=== PATIENT | female | born 1955 | race Hispanic/Latino ===

== ENCOUNTER 2020-07-18 14:59 | Emergency (ER) | payer OTHER, SELFPAY ==
[2020-07-18 16:21] LABS: Bilirubin Negative (Negative); Blood, Urine Negative (Negative); Clarity Clear (Clear); Glucose, Urine (Dipstick) Negative (Negative); Ketone, Urine Negative (Negative); Leukocyte Negative (Negative); Nitrite Negative (Negative); Protein, Urine (Dipstick) Negative (Neg-Trace); Specific Gravity, Urine 1.025 (1.005-1.030); Urobilinogen 0.2 mg/dL (Less than 2)
[2020-07-18] MEDS ORDERED: Ketorolac Tromethamine 30 MG/ML VIAL ONE (16:33)
[2020-07-18 16:40] LABS: ALT (SGPT) 39 U/L (8-55); AST (SGOT) 73 U/L (5-34); Albumin 3.8 g/dL (3.4-4.8); Alkaline Phosphatase 72 U/L (40-110); Anion Gap 14 mmol/L (10-20); BUN (Urea Nitrogen) 9 mg/dL (9.8-20.1); Bilirubin, Total 0.2 mg/dL (0.2-1.2); Calc. Creatinine Clearance 0 mL/min (70-130); Calcium 8.8 mg/dL (7.8-10.44); Carbon Dioxide 23 mmol/L (23-31); Chloride 104 mmol/L (98-107); Estimated GFR-MDRD 44; Globulin 4.3 g/dL (2.4-3.5); Glucose 111 mg/dL (80-115); Lipase 17 U/L (8-78); Potassium 3.8 mmol/L (3.5-5.1); Protein, Total 8.1 g/dL (6.0-8.3); Sodium 137 mmol/L (136-145)
--- NOTE | 2020-07-18 16:56 | CT ---
CT ABDOMEN AND PELVIS WITHOUT CONTRAST: 07/18/[address] of the abdomen and pelvis was done without oral or IV contrast for right flank, mainly lowe r quadrant, pain. There are no focal infiltrates in the lungs. Some of the interstitial markings show minimal prominenc e which is probably chronic. Coronary artery calcifications are present. There are no effusions. The liver is a little generous in size but no space occupying disease was seen in it, the spleen, or the pancreas. The left adrenal gland is a little more nodular than the right but no discrete masses w ere appreciated. The kidneys showed no sign of mass or hydronephrosis within the limitations of a non contrast study. No stones were seen in the kidneys or the ureters. Neither ureter was dilated. There is no distention of bowel to suggest obstruction. There is no thickening of bowel wall. Sigmoid diverticulosis without diverticulitis is seen. Attention is drawn to the patient's appendix which is rather long and ascends up the right flank. In its mid portion, it is 8 mm wide which is borderline in width. There is no stranding around it and ga s does appear to be present in many sections of it. The finding is indeterminate for appendicitis. CT of the pelvis showed no pelvic masses, fluid collections or inflammatory changes. There are severa l small punctate calcifications here and there that re most likely phleboliths. The patient has severe degenerative changes of the spine. Multilevel degenerative disc disease is see n in the low thoracic and lumbar spine. There is slight spondylolisthesis of L4 on L5 that appears to be due to facet arthritis. IMPRESSION: 1. No evidence of obstructive uropathy. 2. Borderline width of the patient's appendix (8 mm) but with no surrounding stranding. Some gas is present throughout most of the appendix. The finding is indeterminate for appendicitis, but shoul d be noted, since this seems to correlate with the site of the patient's pain. Further follow-up or w orkup may be needed. Findings discussed with Dr. Galaviz at 1622 on 07/18/20. POS: HOME
[2020-07-18] MEDS ORDERED: Morphine 2 MG/ML SYRINGE ONE (17:42)
[2020-07-18] MEDS ORDERED: Ondansetron PF 4 MG/2 ML Vial ONE (17:42)
[2020-07-18] MEDS ORDERED: Cefepime 2 GM VIAL ONE (17:42)
[2020-07-18] MEDS ORDERED: Sodium Chloride 0.9% 100 ML ONE (17:43)
== END 2020-07-18 18:00 | disposition short-term general hospital (02) ==
LOC: BURERS 14:59
DX: K35.80 Unspecified acute appendicitis (principal); E11.9 Type 2 diabetes mellitus without complications; E78.5 Hyperlipidemia, unspecified; E78.00 Pure hypercholesterolemia, unspecified; I10 Essential (primary) hypertension; F32.9 Major depressive disorder, single episode, unspecified; F17.210 Nicotine dependence, cigarettes, uncomplicated
CPT/HCPCS: 36415; 74176; 80053; 81003; 83690; 96374; 96375; J0692; J1885; J2270; J2405; J3490

== ENCOUNTER 2020-09-12 11:24 | Emergency (ER) | payer SELFPAY ==
[2020-09-13 01:41] LABS: SARS-CoV-2 MS2 Positive; SARS-CoV-2 N Gene Negative; SARS-CoV-2 S Gene Negative; SARS-CoV-2 by NAA Not Detected (NotDetected); SARS-CoV-2 orf1ab Negative
== END 2020-09-12 12:00 | disposition home or self-care (01) ==
LOC: BURERS 11:24
DX: Z20.828 Contact with and (suspected) exposure to other viral communicable diseases (principal); E11.9 Type 2 diabetes mellitus without complications; E03.9 Hypothyroidism, unspecified; E78.5 Hyperlipidemia, unspecified; I10 Essential (primary) hypertension; F17.210 Nicotine dependence, cigarettes, uncomplicated
CPT/HCPCS: 87635; 99283; U0003

== ENCOUNTER 2020-11-19 15:21 | Emergency (ER) | payer MEDICARE, OTHER ==
[~2020-11-19 15:21] MED LIST: Iopamidol 370 76% 100 ML VIAL ONE
[2020-11-19 16:05] LABS: PTT 31.9 sec (22.9-36.1); Prothrombin Time 13.7 sec (12.0-14.7)
[2020-11-19 16:13] LABS: ALT (SGPT) 28 U/L (8-55); AST (SGOT) 39 U/L (5-34); Albumin 3.9 g/dL (3.4-4.8); Alkaline Phosphatase 80 U/L (40-110); Anion Gap 16 mmol/L (10-20); BUN (Urea Nitrogen) 10 mg/dL (9.8-20.1); Bilirubin, Total 0.2 mg/dL (0.2-1.2); Calc. Creatinine Clearance 0 mL/min (70-130); Calcium 8.8 mg/dL (7.8-10.44); Carbon Dioxide 22 mmol/L (23-31); Chloride 106 mmol/L (98-107); Globulin 3.3 g/dL (2.4-3.5); Glucose 136 mg/dL (80-115); Potassium 3.8 mmol/L (3.5-5.1); Protein, Total 7.2 g/dL (5.8-8.1); Sodium 140 mmol/L (136-145)
[2020-11-19 16:17] LABS: Bilirubin Negative (Negative); Blood, Urine Negative (Negative); Clarity Clear (Clear); Glucose, Urine (Dipstick) Negative (Negative); Ketone, Urine Trace mg/dL (Negative); Leukocyte Negative (Negative); Nitrite Negative (Negative); Protein, Urine (Dipstick) 30 mg/dL (Neg-Trace); Specific Gravity, Urine 1.025 (1.005-1.030); Urobilinogen 0.2 mg/dL (Less than 2)
[2020-11-19 16:33] LABS: Hemoglobin 6.9 g/dL (12.0-16.0); Mean Corpuscular HGB CONC 29.7 g/dL (32.0-36.0); Mean Corpuscular Hemoglobin 20.8 pg (27.0-31.0); Mean Corpuscular Volume 70.1 fL (78.0-98.0); Mean Platelet Volume 8.6 fL (7.4-10.4); Platelet Count 285 thou/uL (130-400); RBC Distribution Width 18.3 % (11.5-14.5); Red Blood Cell (RBC) Count 3.29 mill/uL (4.20-5.40); White Blood Cell (WBC) Count 7.8 thou/uL (4.8-10.8)
[2020-11-19 16:46] LABS: Bacteria/HPF None Seen HPF (None Seen); RBC/HPF 0-3 HPF (0-3); Squamous Epithelial 0-3 HPF (0-3); WBC/HPF 0-3 HPF (0-3)
[2020-11-19 16:47] LABS: Epithelial Cast 0-3 LPF (None Seen); White Blood Cell Cast 0-3 LPF (None Seen)
[2020-11-19 16:51] LABS: #Basophils 0.1 thou/uL (0.0-0.2); #Eosinphils 0.2 thou/uL (0.0-0.7); #Lymphocytes 2.7 thou/uL (1.20-3.40); #Monocytes 0.4 thou/uL (0.11-0.59); #Neutrophils 4.5 thou/uL (1.40-6.50); %Basophils 0.9 % (0.0-1.0); %Eosinophils 2.6 % (0.0-10.0); %Lymphocytes 34.6 % (21.0-51.0); %Monocytes 4.6 % (0.0-10.0); %Neutrophils 57.4 % (42.0-75.0); Anisocytosis SLIGHT = 6-15 cells (100X) (0-5/hpf); Hypochromia SLIGHT = 6-15 cells (100X) (0-5/hpf); MDiff Complete? YES; Microcytosis MODERATE=15-30 cells (100X) (0-5/hpf); Ovalocytes SLIGHT = 2-5 cells (100X) (0-1/hpf); Platelet Morphology Comment Appears Adequate; Spherocytes MODERATE= 6-15 cells (100X) (None Seen)
--- NOTE | 2020-11-19 17:10 | RAD ---
PORTABLE CHEST: Date: 11-19-2020 An AP portable film at 1647 is compared with a 07-25-2020 study. FINDINGS: Mild cardiomegaly is about the same as before. There is no congestive change, pleural effusion or foc al pulmonary infiltrate of concern. The lungs are clear. IMPRESSION: Mild cardiomegaly, stable. POS: HOME
--- NOTE | 2020-11-19 17:37 | CT ---
CT ABDOMEN AND PELVIS WITH CONTRAST: Date: 11-19-[address] of the abdomen and pelvis was done for evaluation of right lower quadrant pain with blood i n the stools. The scan was done using IV contrast only. Oral contrast as not given, by request. FINDINGS: The lung bases show no acute findings. The liver, spleen, pancreas, adrenal glands, kidneys and abdom inal aorta showed no acute findings. Calcification is seen in the aorta without evidence of aneurysm. There has been a prior cholecystectomy. The bowel shows no distention or wall thickening. No obvious findings of colitis were appreciated. Th e area around the base of the cecum showed no inflammatory change, nor was there any elsewhere in the right lower quadrant. The patient does have extensive sigmoid diverticulosis without findings of div erticulitis. No free air or free fluid was detected. CT of the pelvis shows no pelvic masses, fluid collections, or inflammatory changes. Degenerative kianna nges are present in the lower lumbar spine, particularly severe in the facet joints of the lower two lumbar levels. There is the suggestion of some degree of spinal stenosis at L4-5. IMPRESSION: 1. Sigmoid diverticulosis without findings of diverticulitis. 2. No other findings to explain right lower quadrant pain or rectal bleeding. Findings discussed with Dr. Do at 1700 on 11-19-2020. POS: HOME
== END 2020-11-19 20:50 | disposition short-term general hospital (02) ==
LOC: BURERS 15:21
DX: K92.2 Gastrointestinal hemorrhage, unspecified (principal); D64.9 Anemia, unspecified; E11.9 Type 2 diabetes mellitus without complications; E03.9 Hypothyroidism, unspecified; E78.5 Hyperlipidemia, unspecified; I10 Essential (primary) hypertension; Z86.16 Personal history of COVID-19; F17.210 Nicotine dependence, cigarettes, uncomplicated; Z79.899 Other long term (current) drug therapy
CPT/HCPCS: 36415; 71045; 74177; 80053; 81003; 81015; 84484; 85025; 85610; 85730; 86900; 86901; 93005; 94760; Q9967

== ENCOUNTER 2024-03-14 18:20 | Emergency (ER) | payer MEDICARE ==
[2024-03-14] MEDS ORDERED: Meclizine HCl 25 MG TAB ONE (18:41)
[2024-03-14 18:52] LABS: #Basophils 0.1 thou/uL (0.0-0.2); #Eosinphils 0.2 thou/uL (0.0-0.7); #Lymphocytes 1.9 thou/uL (1.20-3.40); #Monocytes 0.3 thou/uL (0.11-0.59); #Neutrophils 7.4 thou/uL (1.40-6.50); %Basophils 0.9 % (0.0-1.0); %Eosinophils 1.9 % (0.0-10.0); %Lymphocytes 19.3 % (21.0-51.0); %Monocytes 2.7 % (0.0-10.0); %Neutrophils 75.2 % (42.0-75.0); Hematocrit 41.5 % (36.0-47.0); Hemoglobin 13.5 g/dL (12.0-16.0); Mean Corpuscular HGB CONC 32.5 g/dL (32.0-36.0); Mean Corpuscular Hemoglobin 27.9 pg (27.0-31.0); Mean Corpuscular Volume 85.9 fl (78.0-98.0); Mean Platelet Volume 9.7 fL (7.4-10.4); Platelet Count 255 10x3/uL (130-400); RBC Distribution Width 21.9 % (11.5-14.5); Red Blood Cell (RBC) Count 4.83 mill/uL (4.20-5.40); White Blood Cell (WBC) Count 9.8 10x3/uL (4.8-10.8)
[2024-03-14 19:03] LABS: Anisocytosis MODERATE=16-30 cells (100X) (0-5/hpf); MDiff Complete? YES; Platelet Adequacy Comment Appears Adequate
[2024-03-14 19:04] LABS: ALT (SGPT) 25 U/L (8-55); AST (SGOT) 52 U/L (5-34); Albumin 4.6 g/dL (3.4-4.8); Alkaline Phosphatase 48 U/L (40-110); Anion Gap 15 mmol/L (10-20); BUN (Urea Nitrogen) 34 mg/dL (9.8-20.1); Bilirubin, Total 0.4 mg/dL (0.2-1.2); Calc. Creatinine Clearance 0 mL/min (70-130); Calcium 9.6 mg/dL (7.8-10.44); Carbon Dioxide 21 mmol/L (23-31); Chloride 104 mmol/L (98-107); Estimated GFR 32; Globulin 3.3 g/dL (2.4-3.5); Glucose 113 mg/dL (80-115); Protein, Total 7.9 g/dL (5.8-8.1); Sodium 135 mmol/L (136-145)
[2024-03-14 19:10] LABS: Troponin I Less than 0.010 ng/mL (< 0.028)
[2024-03-14 21:19] LABS: Troponin I Less than 0.010 ng/mL (< 0.028)
== END 2024-03-14 21:45 | disposition home or self-care (01) ==
LOC: BURERS 18:20
DX: H81.13 Benign paroxysmal vertigo, bilateral (principal); E11.9 Type 2 diabetes mellitus without complications; I10 Essential (primary) hypertension; E78.5 Hyperlipidemia, unspecified; E03.9 Hypothyroidism, unspecified; F17.210 Nicotine dependence, cigarettes, uncomplicated; Z79.899 Other long term (current) drug therapy
CPT/HCPCS: 80053; 84484; 85025; 93005

== ENCOUNTER 2024-03-16 09:50 | Observation (INO) | payer MEDICARE ==
[2024-03-16 10:39] LABS: INR-International Normal Ratio 1.1; Prothrombin Time 13.9 sec (12.0-14.7)
[2024-03-16 10:40] LABS: #Eosinphils 0.1 thou/uL (0.0-0.7); #Lymphocytes 1.6 thou/uL (1.20-3.40); #Monocytes 0.2 thou/uL (0.11-0.59); %Basophils 0.4 % (0.0-1.0); %Eosinophils 0.7 % (0.0-10.0); %Lymphocytes 19.9 % (21.0-51.0); %Monocytes 2.3 % (0.0-10.0); %Neutrophils 76.6 % (42.0-75.0); Anisocytosis SLIGHT = 6-15 cells (100X) (0-5/hpf); Hematocrit 40.9 % (36.0-47.0); Hemoglobin 12.6 g/dL (12.0-16.0); MDiff Complete? YES; Mean Corpuscular HGB CONC 30.9 g/dL (32.0-36.0); Mean Corpuscular Volume 87.5 fl (78.0-98.0); Mean Platelet Volume 7.7 fL (7.4-10.4); Ovalocytes SLIGHT = 2-5 cells (100X) (0-1/hpf); PTT 32.5 sec (22.9-36.1); Platelet Count 205 10x3/uL (130-400); RBC Distribution Width 21.9 % (11.5-14.5); Red Blood Cell (RBC) Count 4.67 mill/uL (4.20-5.40); Tear Drops SLIGHT = 2-5 cells (100X) (0-1/hpf); White Blood Cell (WBC) Count 7.9 10x3/uL (4.8-10.8)
[2024-03-16 10:47] LABS: ALT (SGPT) 26 U/L (8-55); AST (SGOT) 56 U/L (5-34); Albumin 4.1 g/dL (3.4-4.8); Alkaline Phosphatase 32 U/L (40-110); Anion Gap 11 mmol/L (10-20); BUN (Urea Nitrogen) 31 mg/dL (9.8-20.1); Bilirubin, Total 0.4 mg/dL (0.2-1.2); Calc. Creatinine Clearance 0 mL/min (70-130); Calcium 8.9 mg/dL (7.8-10.44); Carbon Dioxide 22 mmol/L (23-31); Chloride 103 mmol/L (98-107); Estimated GFR 35; Globulin 3.1 g/dL (2.4-3.5); Glucose 199 mg/dL (80-115); Potassium 4.9 mmol/L (3.5-5.1); Protein, Total 7.2 g/dL (5.8-8.1); Sodium 131 mmol/L (136-145)
[2024-03-16] MEDS ORDERED: Iopamidol 370 76% 100 ML VIAL ONE (11:23)
[2024-03-16 15:34] LABS: Bilirubin Negative (Negative); Blood, Urine Negative (Negative); Clarity Slightly Cloudy (Clear); Glucose, Urine (Dipstick) 500 mg/dL (Negative); Ketone, Urine Negative (Negative); Leukocyte Negative (Negative); Nitrite Negative (Negative); Protein, Urine (Dipstick) Negative (Neg-Trace); Specific Gravity, Urine 1.015 (1.005-1.030); Urobilinogen 0.2 mg/dL (Less than 2); pH, Urine 5.5 (5.0-9.0)
[2024-03-16 15:45] LABS: Bacteria/HPF 2+ HPF (None Seen); CAUTI Indications for Culture Dysuria,urgency,freq; Mucous/LPF 2+ LPF (<2+); RBC/HPF None Seen HPF (0-3)
[2024-03-16 15:46] LABS: Calcium Oxalate Crystals 1+ HPF (None Seen)
[2024-03-16 15:48] LABS: Urine Culture Reflex No No
[2024-03-16] MEDS ORDERED: Dextrose 50% Abboject 50 ML SYRINGE SLOW IVP PRN (16:36)
[2024-03-16] MEDS ORDERED: Acetaminophen 325 MG TAB PO PRN (16:45)
[2024-03-16] MEDS ORDERED: Ondansetron ODT 4 MG TAB SL PRN ×2 (16:45→18:35)
[2024-03-16] MEDS ORDERED: Ondansetron PF 4 MG/2 ML Vial IVP PRN (16:45)
[2024-03-16 16:57] VITALS: BMI 39.6
[2024-03-16] MEDS: Dextrose 50% Abboject 50 ML SYRINGE ONE (18:43)
[2024-03-16] MEDS ORDERED: Meclizine HCl 25 MG TAB PO PRN (18:52)
[2024-03-16] MEDS: Sodium Chloride 0.9% 1,000 ML IV SCH (20:15)
[2024-03-16] MEDS: Zolpidem Tartrate 5 MG TAB PO SCH (20:16)
[2024-03-17 05:22] LABS: ALT (SGPT) 22 U/L (8-55); AST (SGOT) 54 U/L (5-34); Albumin 3.8 g/dL (3.4-4.8); Alkaline Phosphatase 51 U/L (40-110); Anion Gap 11 mmol/L (10-20); BUN (Urea Nitrogen) 23 mg/dL (9.8-20.1); Bilirubin, Total 0.3 mg/dL (0.2-1.2); Calc. Creatinine Clearance 72 mL/min (70-130); Calcium 8.8 mg/dL (7.8-10.44); Carbon Dioxide 19 mmol/L (23-31); Chloride 109 mmol/L (98-107); Estimated GFR 51; Globulin 2.8 g/dL (2.4-3.5); Glucose 87 mg/dL (80-115); Potassium 4.3 mmol/L (3.5-5.1); Protein, Total 6.6 g/dL (5.8-8.1); Sodium 135 mmol/L (136-145)
[2024-03-17] MEDS: Levothyroxine Sodium 100 MCG TAB PO SCH (05:23)
[2024-03-17] MEDS ORDERED: Empagliflozin 10 MG TAB PO SCH (09:00)
[2024-03-17] MEDS ORDERED: Alogliptin 25 MG TAB PO SCH (09:00)
[2024-03-17] MEDS: FLUoxetine HCl 20 MG CAP PO SCH (10:11)
[2024-03-17] MEDS: Atorvastatin Calcium 40 MG TAB PO SCH (10:12)
[2024-03-17] MEDS: Fenofibrate Nanocrystallized 145 MG TAB PO SCH (10:12)
[2024-03-17] MEDS: Lisinopril 10 MG TAB PO SCH (10:12)
[2024-03-17] MEDS: Spironolactone 25 MG TAB PO SCH (10:13)
[2024-03-17] MEDS: Aspirin 81 mg Enteric Coated Tablet PO SCH (10:13)
[2024-03-17] MEDS: Carvedilol 6.25 MG TAB PO SCH (10:13)
[2024-03-17] MEDS: CeleCOXIB 100 MG CAP PO SCH (10:13)
[2024-03-17] MEDS: Estradiol 1 MG TAB PO SCH (10:14)
[2024-03-17] MEDS: Gentamicin Ophth Soln 0.3% 5 ml Bottle EA EYE SCH (10:15)
[2024-03-17 18:28] VITALS: BP 132/74; TEMP 97.9
== END 2024-03-17 17:00 | disposition home or self-care (01) ==
LOC: BURERS 09:50 → BURMED 15:45
PROVIDERS: ADMIT Family Medicine; ATTEND Family Medicine
DX: E11.649 Type 2 diabetes mellitus with hypoglycemia without coma (principal); E78.5 Hyperlipidemia, unspecified; E03.9 Hypothyroidism, unspecified; J44.9 Chronic obstructive pulmonary disease, unspecified; I11.0 Hypertensive heart disease with heart failure; I50.30 Unspecified diastolic (congestive) heart failure; F41.9 Anxiety disorder, unspecified; F32.A Depression, unspecified; Z90.710 Acquired absence of both cervix and uterus; Z90.49 Acquired absence of other specified parts of digestive tract; Z98.890 Other specified postprocedural states; Z87.891 Personal history of nicotine dependence; Z88.2 Allergy status to sulfonamides; Z88.0 Allergy status to penicillin; Z91.030 Bee allergy status; Z79.890 Hormone replacement therapy; Z79.84 Long term (current) use of oral hypoglycemic drugs; Z79.82 Long term (current) use of aspirin; Z79.899 Other long term (current) drug therapy
CPT/HCPCS: 70450; 71045; 71260; 74177; 80053 ×2; 81001; 82962 ×2; 85025; 85610; 85730; 93005; 96361; 96374; 99285; G0378 ×2; J7050 ×2; J7999; Q9967; 36416; 36415-59